=== PATIENT | female | born 1950 | race Caucasian/White ===

== ENCOUNTER 2022-07-30 12:10 | Inpatient (IN) | payer OTHER, MEDICARE ==
[~2022-07-30] VITALS: Ht 177.8 cm; Wt 102.1 kg
[2022-07-30] MEDS ORDERED: Vancomycin IV 1 GM in SODIUM CHLORIDE 0.9% 250ML 250 ML IV ONE (13:15)
[2022-07-30 13:29] LABS: BASOPHILS # (AUTO) 0.1 (0.0-0.1); BASOPHILS % 0.6 % (0.0-1.0); EOSINOPHILS # (AUTO) 0.1 (0.0-0.4); EOSINOPHILS % 1.4 % (0.0-6.0); HEMOGLOBIN 13.2 g/dL (12.0-16.0); LYMPHOCYTES # (AUTO) 0.7 (1.0-3.2); LYMPHOCYTES % 7.7 % (18.0-39.1); MEAN CORPUSCULAR HEMOGLOBIN 29.9 pg (28-32); MEAN CORPUSCULAR VOLUME 90.7 fL (81-99); MONOCYTES # (AUTO) 0.5 (0.2-0.8); NEUTROPHILS # (AUTO) 7.1 (2.1-6.9); NEUTROPHILS % 83.7 % (38.7-80.0); PLATELET COUNT 339 x10e3/uL (140-360); RED BLOOD COUNT 4.41 x10e6/uL (3.6-5.1); RED CELL DISTRIBUTION WIDTH 12.2 % (11.7-14.4)
[2022-07-30 13:43] LABS: ALANINE AMINOTRANSFERASE 9 IU/L (0-55); ALBUMIN 2.9 g/dL (3.5-5.0); ALBUMIN/GLOBULIN RATIO 0.6 (0.8-2.0); ALKALINE PHOSPHATASE 104 IU/L (40-150); ANION GAP 15.2 mmol/L (8-16); BLOOD UREA NITROGEN 13 mg/dL (7-26); BUN/CREATININE RATIO 15 (6-25); CALCIUM 9.2 mg/dL (8.4-10.2); CARBON DIOXIDE 24 mmol/L (22-29); CHLORIDE 100 mmol/L (98-107); CREATINE KINASE 53 IU/L (29-168); CREATININE, SERUM 0.85 mg/dL (0.57-1.11); GLUCOSE 390 mg/dL (74-118); POTASSIUM 4.2 mmol/L (3.5-5.1); SODIUM 135 mmol/L (136-145)
[2022-07-30] MEDS ORDERED: SODIUM CHLORIDE FLUSH 10 ML SYR INJ PRN (14:15)
[2022-07-30] MEDS ORDERED: BACITRACIN ZINC 0.9GM TP ONE (14:30)
[2022-07-30 14:56] LABS: INR 0.99; PROTHROMBIN TIME 13.6 seconds (11.9-14.5)
[2022-07-30 14:57] LABS: PARTIAL THROMBOPLASTIN TIME 27.5 seconds (23.8-35.5)
[2022-07-30] MEDS: Vancomycin IV 1 GM in SODIUM CHLORIDE 0.9% 250ML 250 ML IV SCH (15:54)
[2022-07-30] MEDS ORDERED: DEXTROSE 50% SYRINGE 50 ML IV PRN ×2 (16:30)
[2022-07-30] MEDS ORDERED: ACETAMINOPHEN 325 MG TAB PO PRN (16:30)
[2022-07-30] MEDS ORDERED: ALBUTEROL/IPRATROPIUM 3 ML NEB NEB PRN (16:30)
[2022-07-30] MEDS ORDERED: LIDOCAINE 4% PATCH TP PRN (16:30)
[2022-07-30] MEDS ORDERED: DIPHENHYDRAMINE HCL 25 MG CAP PO PRN (16:30)
[2022-07-30] MEDS ORDERED: BENZONATATE 100 MG CAP PO PRN (16:30)
[2022-07-30] MEDS ORDERED: MELATONIN 5 MG TABLET PO PRN (16:30)
[2022-07-30] MEDS ORDERED: POTASSIUM CHLORIDE 20 MEQ TAB CR PO PRN (16:30)
[2022-07-30] MEDS ORDERED: DOCUSATE SODIUM 100 MG CAP PO PRN (16:30)
[2022-07-30 16:42] VITALS: BP 156/88; PULSE 75; RESP 19; TEMP 98.3; O2SAT 98
[2022-07-30] MEDS: HYDROCODONE/APAP 5MG-325MG TAB PO PRN (17:00)
[2022-07-30] MEDS: SODIUM CHLORIDE 0.9% 1000ML 1,000 ML IV SCH (17:01)
[2022-07-30] MEDS: ENOXAPARIN SOD INJ 40 MG/0.4 ML SYR SC SCH (17:01)
[2022-07-30] MEDS: INSULIN LISPRO 100 UNIT/1 ML 3ML VIAL SQ SCH ×2 (17:16→20:44)
[2022-07-30 18:05] VITALS: BP 156/88; PULSE 75; RESP 19; TEMP 98.3; O2SAT 98
[2022-07-30 20:00] VITALS: BP 118/50; PULSE 67; RESP 16; TEMP 98.4; O2SAT 96
[2022-07-30] MEDS: INSULIN GLARGINE 100 UNITS/ML VIAL SQ SCH (20:45)
[2022-07-30 21:00] VITALS: BP 118/50; PULSE 67; RESP 16; TEMP 98.4; O2SAT 96
[2022-07-31] VITALS (9 sets, daily range): BP systolic 122–173; BP diastolic 57–80; PULSE 63–66; RESP 17–21; TEMP 97.4–98.8; O2SAT 98–100
[2022-07-31] MEDS: HYDROCODONE/APAP 5MG-325MG TAB PO PRN ×2 (00:49→12:02)
[2022-07-31] MEDS: SODIUM CHLORIDE 0.9% 1000ML 1,000 ML IV SCH ×3 (03:52→21:08)
[2022-07-31] MEDS: Vancomycin IV 1 GM in SODIUM CHLORIDE 0.9% 250ML 250 ML IV SCH ×2 (03:52→14:30)
[2022-07-31 05:53] LABS: BASOPHILS # (AUTO) 0.1 (0.0-0.1); BASOPHILS % 0.8 % (0.0-1.0); EOSINOPHILS # (AUTO) 0.2 (0.0-0.4); EOSINOPHILS % 2.5 % (0.0-6.0); HEMOGLOBIN 12.5 g/dL (12.0-16.0); LYMPHOCYTES # (AUTO) 1.3 (1.0-3.2); LYMPHOCYTES % 17.8 % (18.0-39.1); MEAN CORPUSCULAR HEMOGLOBIN 30.1 pg (28-32); MEAN CORPUSCULAR HGB CONC 32.9 g/dL (31-35); MEAN CORPUSCULAR VOLUME 91.6 fL (81-99); MONOCYTES # (AUTO) 0.6 (0.2-0.8); MONOCYTES % 8.1 % (4.4-11.3); NEUTROPHILS % 70.2 % (38.7-80.0); PLATELET COUNT 322 x10e3/uL (140-360); RED BLOOD COUNT 4.15 x10e6/uL (3.6-5.1); RED CELL DISTRIBUTION WIDTH 12.1 % (11.7-14.4)
[2022-07-31 06:35] LABS: ANION GAP 11.4 mmol/L (8-16); CALCIUM 9.1 mg/dL (8.4-10.2); CREATININE, SERUM 0.66 mg/dL (0.57-1.11); POTASSIUM 3.4 mmol/L (3.5-5.1)
[2022-07-31 07:09] LABS: CHOL/HDL RATIO 4.3 (3.0-3.6); MAGNESIUM 1.6 MG/DL (1.3-2.1); PHOSPHORUS 2.7 MG/DL (2.3-4.7)
[2022-07-31 07:29] LABS: THYROID STIMULATING HORMONE 2.302 uIU/mL (0.350-4.940)
[2022-07-31] MEDS: PANTOPRAZOLE SOD 40 MG TABEC PO SCH (07:46)
[2022-07-31] MEDS: INSULIN LISPRO 100 UNIT/1 ML 3ML VIAL SQ SCH ×4 (07:54→21:18)
[2022-07-31] MEDS: ONDANSETRON HCL INJ 2MG/ML 2ML 2 MG/ML VIAL IV PRN (08:02)
[2022-07-31 09:19] LABS: CLARITY,URINE CLEAR (CLEAR); COLOR,URINE YELLOW (YELLOW); LEUKOCYTE ESTERASE ,URINE TRACE (NEGATIVE)
[2022-07-31 09:20] LABS: KETONES,URINE NEGATIVE (NEGATIVE); NITRITE,URINE NEGATIVE (NEGATIVE); PROTEIN,URINE DIPSTICK NEGATIVE (NEGATIVE); URINE UROBILINOGEN 0.2 mg/dL (0.2 - 1)
[2022-07-31 09:35] LABS: BACTERIA,URINE FEW /HPF; EPITHELIAL CELLS,URINE FEW /LPF; RBC,URINE 0-5 /HPF (0-5)
[2022-07-31] MEDS ORDERED: IOPAMIDOL 370 MG/ML 100 ML INFUS..BTL INJ ONE (10:34)
[2022-07-31] MEDS ORDERED: SODIUM CHLORIDE 0.9% 100 ML ONE (10:34)
[2022-07-31] MEDS: ENOXAPARIN SOD INJ 40 MG/0.4 ML SYR SC SCH (16:52)
[2022-07-31] MEDS: INSULIN GLARGINE 100 UNITS/ML VIAL SQ SCH (21:17)
[2022-08-01] VITALS (7 sets, daily range): BP systolic 148–192; BP diastolic 72–88; PULSE 60–69; RESP 16–20; TEMP 97.5–98.3; O2SAT 96–100
[2022-08-01] MEDS: ONDANSETRON HCL INJ 2MG/ML 2ML 2 MG/ML VIAL IV PRN (00:48)
[2022-08-01] MEDS: HYDROCODONE/APAP 5MG-325MG TAB PO PRN ×3 (00:50→23:53)
[2022-08-01] MEDS: HYDRALAZINE HCL 20 MG/ML VIAL IV PRN (00:50)
[2022-08-01] MEDS: Vancomycin IV 1 GM in SODIUM CHLORIDE 0.9% 250ML 250 ML IV SCH ×2 (03:19→15:57)
[2022-08-01] MEDS: LEVOTHYROXINE SODIUM 100 MCG TAB PO SCH (06:12)
[2022-08-01] MEDS: PANTOPRAZOLE SOD 40 MG TABEC PO SCH (08:33)
[2022-08-01] MEDS: INSULIN LISPRO 100 UNIT/1 ML 3ML VIAL SQ SCH ×4 (08:34→21:57)
[2022-08-01] MEDS: SODIUM CHLORIDE 0.9% 1000ML 1,000 ML IV SCH (08:34)
[2022-08-01] MEDS ORDERED: LEVOTHYROXINE112 MCG PO (08:43)
[2022-08-01] MEDS ORDERED: HUMALOG (08:43)
[2022-08-01] MEDS ORDERED: BRIMONIDINE TART5 ML OP (08:43)
[2022-08-01] MEDS ORDERED: TOUJEO SOL300 UNIT/1 SQ (08:43)
[2022-08-01] MEDS ORDERED: DORZOLAMIDE-TIM10 ML OP (08:43)
[2022-08-01] MEDS: LOSARTAN POTASSIUM 100 MG TAB PO SCH (15:58)
[2022-08-01] MEDS: ENOXAPARIN SOD INJ 40 MG/0.4 ML SYR SC SCH (15:58)
[2022-08-01] MEDS: INSULIN GLARGINE 100 UNITS/ML VIAL SQ SCH (21:59)
[2022-08-02] VITALS (11 sets, daily range): BP systolic 138–187; BP diastolic 70–97; PULSE 63–73; RESP 14–18; TEMP 97–98.6; O2SAT 98–99
[2022-08-02] MEDS: Vancomycin IV 1 GM in SODIUM CHLORIDE 0.9% 250ML 250 ML IV SCH (02:58)
[2022-08-02] MEDS: SODIUM CHLORIDE 0.9% 1000ML 1,000 ML IV SCH ×3 (03:02→13:51)
[2022-08-02] MEDS: LEVOTHYROXINE SODIUM 100 MCG TAB PO SCH (05:04)
[2022-08-02] MEDS: HYDRALAZINE HCL 20 MG/ML VIAL IV PRN (05:05)
[2022-08-02] MEDS: ONDANSETRON HCL INJ 2MG/ML 2ML 2 MG/ML VIAL IV PRN (07:02)
[2022-08-02] MEDS: HYDROCODONE/APAP 5MG-325MG TAB PO PRN ×2 (07:49→14:23)
[2022-08-02] MEDS: PANTOPRAZOLE SOD 40 MG TABEC PO SCH (07:49)
[2022-08-02] MEDS: LOSARTAN POTASSIUM 100 MG TAB PO SCH ×2 (08:00→17:50)
[2022-08-02] MEDS: INSULIN LISPRO 100 UNIT/1 ML 3ML VIAL SQ SCH ×4 (08:14→21:10)
[2022-08-02] MEDS ORDERED: POTASSIUM CHLORIDE 20 MEQ TAB CR PO ONE (12:00)
[2022-08-02] MEDS: HYDROCHLOROTHIAZIDE 25 MG TAB PO SCH (12:01)
[2022-08-02] MEDS: VANCOMYCIN 1.25GM/250ML PREMIX 250 ML IV SCH (13:51)
[2022-08-02] MEDS: ENOXAPARIN SOD INJ 40 MG/0.4 ML SYR SC SCH (17:50)
[2022-08-02] MEDS: METOCLOPRAMIDE HCL 10 MG TAB PO SCH (17:50)
[2022-08-02] MEDS: INSULIN GLARGINE 100 UNITS/ML VIAL SQ SCH (21:09)
[2022-08-03] VITALS (10 sets, daily range): BP systolic 136–167; BP diastolic 67–84; PULSE 65–76; RESP 16–18; TEMP 97–98.6; O2SAT 95–99
[2022-08-03] MEDS: HYDROCODONE/APAP 5MG-325MG TAB PO PRN (00:27)
[2022-08-03] MEDS: VANCOMYCIN 1.25GM/250ML PREMIX 250 ML IV SCH ×2 (03:12→15:33)
[2022-08-03] MEDS: LEVOTHYROXINE SODIUM 100 MCG TAB PO SCH (05:31)
[2022-08-03 06:06] LABS: BASOPHILS # (AUTO) 0.1 (0.0-0.1); BASOPHILS % 0.9 % (0.0-1.0); EOSINOPHILS # (AUTO) 0.1 (0.0-0.4); EOSINOPHILS % 1.7 % (0.0-6.0); HEMATOCRIT 37.7 % (34.2-44.1); HEMOGLOBIN 12.4 g/dL (12.0-16.0); LYMPHOCYTES # (AUTO) 1.1 (1.0-3.2); MEAN CORPUSCULAR HEMOGLOBIN 29.7 pg (28-32); MEAN CORPUSCULAR HGB CONC 32.9 g/dL (31-35); MEAN CORPUSCULAR VOLUME 90.2 fL (81-99); MONOCYTES # (AUTO) 0.6 (0.2-0.8); MONOCYTES % 7.9 % (4.4-11.3); NEUTROPHILS # (AUTO) 5.5 (2.1-6.9); NEUTROPHILS % 73.8 % (38.7-80.0); PLATELET COUNT 371 x10e3/uL (140-360); RED BLOOD COUNT 4.18 x10e6/uL (3.6-5.1); RED CELL DISTRIBUTION WIDTH 12.5 % (11.7-14.4)
[2022-08-03 06:41] LABS: ANION GAP 13.6 mmol/L (8-16); CALCIUM 8.9 mg/dL (8.4-10.2); CREATININE, SERUM 0.78 mg/dL (0.57-1.11); POTASSIUM 3.6 mmol/L (3.5-5.1)
[2022-08-03] MEDS: PANTOPRAZOLE SOD 40 MG TABEC PO SCH (08:49)
[2022-08-03] MEDS: METOCLOPRAMIDE HCL 10 MG TAB PO SCH ×3 (08:49→17:20)
[2022-08-03] MEDS: HYDROCHLOROTHIAZIDE 25 MG TAB PO SCH (08:49)
[2022-08-03] MEDS: LOSARTAN POTASSIUM 100 MG TAB PO SCH ×2 (08:50→17:21)
[2022-08-03] MEDS: INSULIN LISPRO 100 UNIT/1 ML 3ML VIAL SQ SCH ×4 (08:59→21:17)
[2022-08-03] MEDS: ENOXAPARIN SOD INJ 40 MG/0.4 ML SYR SC SCH (17:21)
[2022-08-03] MEDS: INSULIN GLARGINE 100 UNITS/ML VIAL SQ SCH (21:18)
[2022-08-04] VITALS (11 sets, daily range): BP systolic 147–197; BP diastolic 72–99; PULSE 64–78; RESP 16–20; TEMP 97.4–98.2; O2SAT 97–100
[2022-08-04] MEDS: VANCOMYCIN 1.25GM/250ML PREMIX 250 ML IV SCH ×2 (03:28→16:27)
[2022-08-04] MEDS: LEVOTHYROXINE SODIUM 100 MCG TAB PO SCH (05:21)
[2022-08-04] MEDS: HYDROCHLOROTHIAZIDE 25 MG TAB PO SCH (08:22)
[2022-08-04] MEDS: METOCLOPRAMIDE HCL 10 MG TAB PO SCH ×3 (08:22→17:00)
[2022-08-04] MEDS: PANTOPRAZOLE SOD 40 MG TABEC PO SCH (08:23)
[2022-08-04] MEDS: LOSARTAN POTASSIUM 100 MG TAB PO SCH ×2 (08:23→17:40)
[2022-08-04] MEDS: INSULIN LISPRO 100 UNIT/1 ML 3ML VIAL SQ SCH ×4 (08:26→23:29)
[2022-08-04] MEDS ORDERED: ONDANSETRON HCL 4 MG ORAL DISINTEGRATING TAB PO PRN (09:30)
[2022-08-04] MEDS: CARVEDILOL 12.5 MG TAB PO SCH ×2 (12:46→17:41)
[2022-08-04] MEDS: ENOXAPARIN SOD INJ 40 MG/0.4 ML SYR SC SCH (17:41)
[2022-08-04] MEDS: INSULIN GLARGINE 100 UNITS/ML VIAL SQ SCH (23:27)
[2022-08-05] VITALS (7 sets, daily range): BP systolic 137–152; BP diastolic 68–77; PULSE 62–74; RESP 18–20; TEMP 97.5–98.2; O2SAT 95–99
[2022-08-05] MEDS: VANCOMYCIN 1.25GM/250ML PREMIX 250 ML IV SCH (04:04)
[2022-08-05] MEDS: LEVOTHYROXINE SODIUM 100 MCG TAB PO SCH (05:41)
[2022-08-05] MEDS: PANTOPRAZOLE SOD 40 MG TABEC PO SCH (07:30)
[2022-08-05] MEDS: METOCLOPRAMIDE HCL 10 MG TAB PO SCH ×3 (08:00→17:00)
[2022-08-05] MEDS: LOSARTAN POTASSIUM 100 MG TAB PO SCH ×2 (09:00→17:04)
[2022-08-05] MEDS: HYDROCHLOROTHIAZIDE 25 MG TAB PO SCH (09:00)
[2022-08-05] MEDS: CARVEDILOL 12.5 MG TAB PO SCH ×2 (09:00→17:05)
[2022-08-05] MEDS: INSULIN LISPRO 100 UNIT/1 ML 3ML VIAL SQ SCH ×4 (09:42→22:29)
[2022-08-05] MEDS ORDERED: BUPIVACAINE HCL 0.5% INJ 30 ML VIAL INJ ONE (11:49)
[2022-08-05] MEDS ORDERED: ONDANSETRON HCL INJ 2MG/ML 2ML 2 MG/ML VIAL ONE (13:43)
[2022-08-05] MEDS ORDERED: EPHEDRINE SULFATE INJ 50 MG/ML VIAL ONE (13:43)
[2022-08-05] MEDS ORDERED: KETOROLAC TROMETHAMINE 30 MG/ML VIAL ONE (13:43)
[2022-08-05] MEDS ORDERED: LIDOCAINE HCL 2% LOCAL INJ 5 ML SDV VIAL INJ ONE (13:43)
[2022-08-05] MEDS ORDERED: POVIDONE IODINE 0.05% 0.05 % ML PO ONE (13:43)
[2022-08-05] MEDS ORDERED: PROPOFOL IV EMULSION 10 MG/ML 20 ML VIAL ONE (13:43)
[2022-08-05] MEDS ORDERED: SEVOFLURANE INHAL SOLN 250 ML PEN BTL ONE (13:43)
[2022-08-05] MEDS ORDERED: FENTANYL CITRATE/PF 100MCG/2 ML INJ ONE (14:02)
[2022-08-05] MEDS: ENOXAPARIN SOD INJ 40 MG/0.4 ML SYR SC SCH (17:05)
[2022-08-05] MEDS ORDERED: INSULIN GLARGINE 100 UNITS/ML VIAL SQ SCH (21:00)
[2022-08-06] MEDS: LEVOTHYROXINE SODIUM 100 MCG TAB PO SCH (05:50)
[2022-08-06 05:52] LABS: BASOPHILS # (AUTO) 0.1 (0.0-0.1); BASOPHILS % 0.8 % (0.0-1.0); EOSINOPHILS # (AUTO) 0.2 (0.0-0.4); EOSINOPHILS % 1.8 % (0.0-6.0); HEMATOCRIT 38.4 % (34.2-44.1); HEMOGLOBIN 12.8 g/dL (12.0-16.0); LYMPHOCYTES # (AUTO) 0.9 (1.0-3.2); LYMPHOCYTES % 9.8 % (18.0-39.1); MEAN CORPUSCULAR HEMOGLOBIN 30.5 pg (28-32); MEAN CORPUSCULAR HGB CONC 33.3 g/dL (31-35); MEAN CORPUSCULAR VOLUME 91.4 fL (81-99); MONOCYTES # (AUTO) 0.6 (0.2-0.8); MONOCYTES % 7.1 % (4.4-11.3); NEUTROPHILS # (AUTO) 7.2 (2.1-6.9); NEUTROPHILS % 79.8 % (38.7-80.0); PLATELET COUNT 298 x10e3/uL (140-360); RED CELL DISTRIBUTION WIDTH 12.3 % (11.7-14.4)
[2022-08-06] MEDS: HYDRALAZINE HCL 20 MG/ML VIAL IV PRN (06:01)
[2022-08-06 06:26] LABS: ANION GAP 11.2 mmol/L (8-16); CALCIUM 8.8 mg/dL (8.4-10.2); CREATININE, SERUM 0.84 mg/dL (0.57-1.11); POTASSIUM 4.2 mmol/L (3.5-5.1)
[2022-08-06 06:29] VITALS: PULSE 70; RESP 19; O2SAT 96
[2022-08-06 08:28] VITALS: BP 159/70; PULSE 73; RESP 16; TEMP 98.4; O2SAT 96
[2022-08-06 08:35] VITALS: BP 159/70; PULSE 73; RESP 16; TEMP 98.9; O2SAT 96
[2022-08-06] MEDS: LOSARTAN POTASSIUM 100 MG TAB PO SCH ×2 (08:53→17:34)
[2022-08-06] MEDS: PANTOPRAZOLE SOD 40 MG TABEC PO SCH (08:53)
[2022-08-06] MEDS: METOCLOPRAMIDE HCL 10 MG TAB PO SCH ×3 (08:54→17:00)
[2022-08-06] MEDS: CARVEDILOL 12.5 MG TAB PO SCH ×2 (08:54→17:35)
[2022-08-06] MEDS: HYDROCHLOROTHIAZIDE 25 MG TAB PO SCH (08:54)
[2022-08-06] MEDS: INSULIN LISPRO 100 UNIT/1 ML 3ML VIAL SQ SCH ×4 (09:02→21:35)
[2022-08-06] MEDS: Vancomycin IV 1 GM in SODIUM CHLORIDE 0.9% 250ML 250 ML IV SCH (09:05)
[2022-08-06] MEDS ORDERED: ENOXAPARIN SOD INJ 40 MG/0.4 ML SYR SC SCH (18:15)
[2022-08-06 18:24] VITALS: PULSE 68; RESP 19; O2SAT 95
[2022-08-06 20:00] VITALS: BP 134/64; PULSE 70; RESP 18; TEMP 98.9; O2SAT 97
[2022-08-06] MEDS ORDERED: INSULIN GLARGINE 100 UNITS/ML VIAL SQ SCH (21:00)
[2022-08-07] VITALS (7 sets, daily range): BP systolic 120–155; BP diastolic 60–74; PULSE 61–88; RESP 16–20; TEMP 97.2–98.7; O2SAT 95–100
[2022-08-07] MEDS: LEVOTHYROXINE SODIUM 100 MCG TAB PO SCH (06:09)
[2022-08-07] MEDS: PANTOPRAZOLE SOD 40 MG TABEC PO SCH (08:41)
[2022-08-07] MEDS: LOSARTAN POTASSIUM 100 MG TAB PO SCH (08:41)
[2022-08-07] MEDS: HYDROCHLOROTHIAZIDE 25 MG TAB PO SCH (08:41)
[2022-08-07] MEDS: CARVEDILOL 12.5 MG TAB PO SCH (08:42)
[2022-08-07] MEDS: METOCLOPRAMIDE HCL 10 MG TAB PO SCH ×2 (08:42→12:00)
[2022-08-07] MEDS: INSULIN LISPRO 100 UNIT/1 ML 3ML VIAL SQ SCH ×3 (08:48→16:15)
[2022-08-07] MEDS ORDERED: ASPIRIN 81 MG ENTERIC COATED PO SCH (09:00)
[2022-08-07] MEDS: Vancomycin IV 1 GM in SODIUM CHLORIDE 0.9% 250ML 250 ML IV SCH (09:25)
== END 2022-08-07 16:45 | DRG 504 ==
LOC: ER 12:15 → ERHOLD 14:06 → OBSVTOIN 15:31 → MED/SURG3 16:02
PROVIDERS: ADMIT Internal Medicine; ATTEND Internal Medicine
PROC: 02HV33Z Insertion of Infusion Device into Superior Vena Cava, Percutaneous Approach (ICD-10-PCS; 2022-08-02)
PROC: B548ZZA Ultrasonography of Superior Vena Cava, Guidance (ICD-10-PCS; 2022-08-02)
PROC: 0Y6P0Z3 Detachment at Right 1st Toe, Low, Open Approach (ICD-10-PCS; principal; 2022-08-05 11:58)
DX: M86.171 Other acute osteomyelitis, right ankle and foot (principal); I50.32 Chronic diastolic (congestive) heart failure; L03.115 Cellulitis of right lower limb; L97.518 Non-pressure chronic ulcer of other part of right foot with other specified severity; E11.621 Type 2 diabetes mellitus with foot ulcer; E11.69 Type 2 diabetes mellitus with other specified complication; E11.42 Type 2 diabetes mellitus with diabetic polyneuropathy; R53.81 Other malaise; E78.5 Hyperlipidemia, unspecified; H40.9 Unspecified glaucoma; E11.51 Type 2 diabetes mellitus with diabetic peripheral angiopathy without gangrene; E03.9 Hypothyroidism, unspecified; H54.61 Unqualified visual loss, right eye, normal vision left eye; M81.0 Age-related osteoporosis without current pathological fracture; K21.9 Gastro-esophageal reflux disease without esophagitis; R26.89 Other abnormalities of gait and mobility; K80.20 Calculus of gallbladder without cholecystitis without obstruction; I11.0 Hypertensive heart disease with heart failure; Z96.642 Presence of left artificial hip joint; Z74.2 Need for assistance at home and no other household member able to render care; K56.41 Fecal impaction; G89.4 Chronic pain syndrome; I70.203 Unspecified atherosclerosis of native arteries of extremities, bilateral legs; Z96.21 Cochlear implant status; I83.10 Varicose veins of unspecified lower extremity with inflammation; R46.0 Very low level of personal hygiene; Z20.822 Contact with and (suspected) exposure to COVID-19; T87.81 Dehiscence of amputation stump; Y83.5 Amputation of limb(s) as the cause of abnormal reaction of the patient, or of later complication, without mention of misadventure at the time of the procedure; Y92.238 Other place in hospital as the place of occurrence of the external cause; Z91.199 Patient's noncompliance with other medical treatment and regimen due to unspecified reason; Z85.038 Personal history of other malignant neoplasm of large intestine; Z91.198 Patient's noncompliance with other medical treatment and regimen for other reason
CPT/HCPCS: 0223U; 36415; 36569; 71045; 75635; 76700; 80048; 80053; 80061; 80202; 81001; 82550; 82948; 83036; 83605; 83735; 84100; 84443; 84484; 85025; 85610; 85730; 87040; 87071; 87075; 87086; 87205; 88304; 88311; 88342; 93005; 93925; 94799; 96372; 99284; J0692; J1650; J1815; J1885; J2001; J2405; J7030; J7050; Q9967